=== PATIENT | male | born 1990 | race Asian ===

== ENCOUNTER 2019-03-18 09:31 | Emergency (ER) | payer SELFPAY ==
[2019-03-18 09:38] VITALS: BP 103/58
--- NOTE | 2019-03-18 11:05 | ED Physician Documentation ---
PD HPI SKIN - Stated complaint Stated Complaint: INFECTED WOUND - Chief complaint Chief Complaint: Wound - History obtained from History obtained from: Patient, Friend - History of Present Illness Timing - onset: How many days ago (4) Timing - duration: Days (4) Timing - details: Gradual onset, Still present Location: Abdomen Quality / character: Painful, Discolored, Raised Associated symptoms: Headache. No: Joint pain Contributing factors: Insect bite /sting Similar symptoms before: Has not had sx before Recently seen: Not recently seen - Additional information Additional information: 28-year-old previously well male has developed a small sore on his abdominal wall on the left lower side that has become erythematous and the erythema is spreading. He has significant pain associated with this and he did try to poke and drained this. He did not get much out. He has had a fever. Review of Systems Constitutional: reports: Fever Respiratory: denies: Cough GI: reports: Abdominal Pain. denies: Vomiting : denies: Dysuria, Frequency Skin: reports: Lesions PD PAST MEDICAL HISTORY - Past Surgical History Past Surgical History: No - Present Medications Home Medications: Ambulatory Orders Medication Instructions Recorded Confirmed Oxycodone HCl/Acetaminophen 1 - 2 each PO Q6H PRN #14 tablet 03/18/19 [Percocet 5-325 mg Tablet] Sulfamethoxazole/Trimethoprim 1 each PO BID #14 tablet 03/18/19 [Sulfamethoxazole-Tmp Ds Tablet] - Allergies Allergies/Adverse Reactions: Allergies Allergy/AdvReac Type Severity Reaction Status Date / Time No Known Drug Allergies Allergy Verified 03/18/19 09:37 - Social History Does the pt smoke?: No Smoking Status: Never smoker Does the pt drink ETOH?: No Does the pt have substance abuse?: No - Immunizations Immunizations are current?: No PD ED PE NORMAL - Vitals Vital signs reviewed: Yes - General General: Alert and oriented X 3, No acute distress, Well developed/nourished, Other (flat affect and quite speaking ) - HEENT HEENT: Atraumatic, PERRL, EOMI - Respiratory Respiratory: No respiratory distress - Abdomen Abdomen: Soft, Other (There is an area over the left lower abdominal wall that is erythematous and tender without fluctuance. There is no appreciated fluid collection on bedside ultrasound. The size is approx 4cm X 2.5cm ) - Derm Derm: Normal color, Warm and dry, No rash - Extremities Extremities: No deformity, No edema - Psych Psych: Normal mood, Other (flat affect ) Results - Vitals Vitals: Vital Signs - 24 hr 03/18/19 09:35 Temperature 36.9 C Heart Rate 105 H Respiratory 18 Rate Blood Pressure 103/58 L O2 Saturation 99 Oxygen O2 Source Room air Procedures - Bedside sono Bedside sono by EMP: The use of bedside ultrasound the area is examined it is tender there is not evidence of a fluid collection. Departure - Departure Disposition: 01 Home, Self Care Clinical Impression: Abscess Condition: Stable Instructions: ED Staph Infec Abx Tx Only Follow-Up: [facility] [place] [Provider Group] Prescriptions: Oxycodone HCl/Acetaminophen [Percocet 5-325 mg Tablet] 1 - 2 each PO Q6H PRN #14 tablet PRN Reason: pain Sulfamethoxazole/Trimethoprim [Sulfamethoxazole-Tmp Ds Tablet] 1 each PO BID #14 tablet
== END 2019-03-18 11:26 | disposition home or self-care (01) ==
LOC: ED 09:31
DX: L02.211 Cutaneous abscess of abdominal wall (principal)
CPT/HCPCS: 99283

== ENCOUNTER 2019-03-20 13:23 | Emergency (ER) | payer SELFPAY ==
[2019-03-20] MEDS ORDERED: BUFFERED LIDOCAINE 10 ML SYRINGE SUBQ STA (14:43)
--- NOTE | 2019-03-20 15:18 | ED Physician Documentation ---
PD HPI SKIN - Stated complaint Stated Complaint: F/U OPEN WOUND - Chief complaint Chief Complaint: General - History obtained from History obtained from: Patient, Friend - History of Present Illness Timing - onset: How many weeks ago (1) Timing - duration: Weeks (1) Timing - details: Gradual onset, Still present Location: Abdomen Quality / character: Discolored, Raised, Crusted, Swelling, Draining Improved by: Antibiotics Associated symptoms: Myalgias, N/V/D. No: Fever Similar symptoms before: Diagnosis (abscess) Recently seen: Emergency Dept - Additional information Additional information: 28-year-old male was evaluated here in the emergency department 2 days ago for a unripe and abscess on his left abdominal wall. He has been on Septra for the past 2 days and he believes his abscess has now ripened. Review of Systems Constitutional: denies: Fever Eyes: denies: Decreased vision Ears: denies: Ear pain Nose: denies: Congestion Throat: denies: Sore throat Respiratory: denies: Cough GI: reports: Nausea (with pain medication on an empty stomach), Vomiting PD PAST MEDICAL HISTORY - Past Medical History Past Medical History: No Cardiovascular: None Respiratory: None Neuro: None Endocrine/Autoimmune: None GI: None : None HEENT: None Psych: None Musculoskeletal: None Derm: None - Past Surgical History Past Surgical History: No - Present Medications Home Medications: Ambulatory Orders Medication Instructions Recorded Confirmed Oxycodone HCl/Acetaminophen 1 - 2 each PO Q6H PRN #14 tablet 03/18/19 [Percocet 5-325 mg Tablet] Sulfamethoxazole/Trimethoprim 1 each PO BID #14 tablet 03/18/19 [Sulfamethoxazole-Tmp Ds Tablet] Cephalexin [Keflex] 500 mg PO Q6H #28 capsule 03/20/19 - Allergies Allergies/Adverse Reactions: Allergies Allergy/AdvReac Type Severity Reaction Status Date / Time No Known Drug Allergies Allergy Verified 03/20/19 13:34 - Social History Does the pt smoke?: No Smoking Status: Never smoker Does the pt drink ETOH?: No Does the pt have substance abuse?: No - Immunizations Immunizations are current?: No Immunizations: No immun - POLST Patient has POLST: No PD ED PE NORMAL - Vitals Vital signs reviewed: Yes (normal ) - General General: Alert and oriented X 3, Well developed/nourished, Other (appears to be in pain ) - HEENT HEENT: Atraumatic, PERRL, EOMI - Respiratory Respiratory: No respiratory distress - Abdomen Abdomen: Other (There is a 4cm X 3cm erythematous plaque to the left lower abdominal wall with fluctuance and tenderness present. The area of erythema appears similar or smaller than 2 days ago. There is a head on the wound and this has some skin breakdown present. ) - Derm Derm: Normal color, Warm and dry, No rash - Extremities Extremities: No deformity, No edema - Neuro Neuro: Alert and oriented X 3, pony edger 2-12 intact, No motor deficit, No sensory deficit, Normal speech, Other (soft spoken and friends volunteer information readily ) Eye Opening: Spontaneous Motor: Obeys Commands Verbal: Oriented GCS Score: 15 - Psych Psych: Normal mood, Normal affect Results - Vitals Vitals: Vital Signs - 24 hr 03/20/19 13:32 Temperature 36.7 C Heart Rate 81 Respiratory 16 Rate Blood Pressure 118/70 O2 Saturation 98 Oxygen O2 Source Room air Procedures - Abscess I&D (location) abd wall Preparation: Lidocaine 1% Incision: Incised with scalpel, Purulent drainage, Loculations broken, Irrigated, Culture obtained Other: Pt tolerated well, Dressing applied, Antibiotic prescribed PD MEDICAL DECISION MAKING - ED course Complexity details: considered differential, d/w patient, d/w family ED course: 28-year-old male with an abscess that has now ripened. This is incised and drained the patient is on Septra we will continue the Septra and add Keflex. Departure - Departure Disposition: 01 Home, Self Care Clinical Impression: Abscess Condition: Stable Instructions: ED Abscess IandD Follow-Up: [facility] [Provider Group] Prescriptions: Cephalexin [Keflex] 500 mg PO Q6H #28 capsule
[2019-03-20 15:42] VITALS: BP 120/73
== END 2019-03-20 15:42 | disposition home or self-care (01) ==
LOC: ED 13:23
DX: L02.211 Cutaneous abscess of abdominal wall (principal)
CPT/HCPCS: 10060; 87070; 87181; 87205; 99283